=== PATIENT | female | born 1980 | race Caucasian/White ===

== ENCOUNTER 2019-10-26 01:35 | Emergency (ER) | payer SELFPAY ==
--- NOTE | 2019-10-26 08:03 | ULT ---
PRELIMINARY REPORT/[facility]/EMERGENCY AFTER HOURS PROCEDURE EXAM: US Duplex left Lower Extremity Veins. CLINICAL HISTORY: LLE pain/edema x 1 wk COMPARISON: None provided. FINDINGS: Left common femoral, femoral, and popliteal veins appear patent and free of thrombus, demon strating normal color flow and compressibility. Visualized calf veins appear patent. IMPRESSION: No evidence of deep venous thrombosis in the left lower extremity. ELECTRONICALLY SIGNED BY: Raphael Stockton MD Oct 26, 2019 3:01:15 AM CDT FINAL REPORT EMERGENT AFTER HOURS LEFT LOWER EXTREMITY VENOUS ULTRASOUND: FINDINGS/IMPRESSION: I agree with the findings and impression given in the preliminary report per [facility] physici an. No evidence of deep vein thrombosis. POS: [facility]
== END 2019-10-26 03:47 | disposition home or self-care (01) ==
LOC: ERS 01:35
DX: M25.562 Pain in left knee (principal); E11.9 Type 2 diabetes mellitus without complications; Z79.4 Long term (current) use of insulin; Z79.899 Other long term (current) drug therapy

== ENCOUNTER 2021-05-31 04:00 | Emergency (ER) | payer BC ==
[2021-05-31 17:24] LABS: SARS-CoV-2 PCR by NAA DETECTED (NotDetected)
== END 2021-05-31 06:58 | disposition home or self-care (01) ==
LOC: ERS 04:00
DX: U07.1 COVID-19 (principal); E11.9 Type 2 diabetes mellitus without complications; Z79.4 Long term (current) use of insulin; Z79.899 Other long term (current) drug therapy
CPT/HCPCS: 99283; U0003; U0005

== ENCOUNTER 2022-01-18 09:01 | Emergency (ER) | payer BC ==
[2022-01-18] MEDS ORDERED: Ketorolac Tromethamine 30 MG/ML VIAL ONE (09:50)
== END 2022-01-18 09:43 | disposition home or self-care (01) ==
LOC: ERS 09:01
DX: M54.50 Low back pain, unspecified (principal); E78.00 Pure hypercholesterolemia, unspecified; E11.9 Type 2 diabetes mellitus without complications; Z79.4 Long term (current) use of insulin; Z79.899 Other long term (current) drug therapy
CPT/HCPCS: 96372; 99283; J1885

== ENCOUNTER 2024-02-15 15:22 | Emergency (ER) | payer BC ==
[2024-02-15] MEDS ORDERED: Ketorolac Tromethamine 30 MG (1 mL) VIAL ONE (17:41)
[2024-02-15] MEDS ORDERED: Lidocaine 4% Patch ONE (20:11)
== END 2024-02-15 20:00 | disposition home or self-care (01) ==
LOC: ERS 15:22
DX: M54.32 Sciatica, left side (principal)
CPT/HCPCS: J1885